=== PATIENT | male | born 1955 | race Caucasian/White ===

== ENCOUNTER 2016-09-20 18:12 | Emergency (ER) | payer BC ==
[2016-09-20 18:25] VITALS: TEMP 100
[2016-09-20 18:58] LABS: Glucose,Whole Blood 450 mg/dL (75-99)
[2016-09-20] MEDS ORDERED: ACETAMINOPHEN TAB 500 MG TAB PO STA (20:14)
--- NOTE | 2016-09-20 20:17 | ED ---
General Adult HPI - General Chief complaint: Recheck/Abnormal Lab/Rx Stated complaint: abn labs Time Seen by Provider: 09/20/16 20:05 Source: patient, family, RN notes reviewed Mode of arrival: ambulatory Limitations: no limitations - History of Present Illness Initial comments: Patient is a pleasant 60-year-old male presenting to the emergency department with hyperglycemia. Patient states the past few days he has been fatigued and had head congestion. Questionable subjective fevers. Patient did see his doctor today and blood sugar was 275. They did notice ketones in the urine. Reported chest x-ray was negative. Patient states he has not been taking his medications over the past couple of days. Decreased appetite. - Related Data Home Medications Medication Instructions Recorded Confirmed Aspirin EC [Ecotrin Low Dose] 81 mg PO DAILY 12/19/14 09/20/16 Gabapentin [Neurontin] 900 mg PO TID 12/19/14 09/20/16 INSULIN LISPRO (HumaLOG) [humaLOG] See Protocol SQ AC-TID 12/19/14 09/20/16 Insulin Glargine [Lantus] 50 unit SQ HS 12/19/14 09/20/16 Rosuvastatin Calcium [Crestor] 20 mg PO HS 12/19/14 09/20/16 Multivitamin [Men's Multi-Vitamin] 1 tab PO DAILY 12/28/14 09/20/16 Amlodipine (Unknown Dose) 1 tab PO DAILY 09/20/16 09/20/16 Cholecalciferol [Vitamin D3] 5,000 unit PO DAILY 09/20/16 09/20/16 Krill Oil 500 mg PO DAILY 09/20/16 09/20/16 Allergies Allergy/AdvReac Type Severity Reaction Status Date / Time Penicillins Allergy Unknown Verified 09/20/16 19:12 Childhood Review of Systems ROS Statement: Those systems with pertinent positive or pertinent negative responses have been documented in the HPI. ROS Other: All systems not noted in ROS Statement are negative. Constitutional: Denies: fever Eyes: Denies: eye pain ENT: Reports: congestion. Denies: ear pain Respiratory: Reports: cough Cardiovascular: Denies: chest pain Endocrine: Reports: fatigue Gastrointestinal: Denies: abdominal pain Genitourinary: Denies: dysuria Musculoskeletal: Denies: back pain Skin: Denies: rash Neurological: Denies: weakness Past Medical History Past Medical History: Diabetes Mellitus, Hyperlipidemia, Hypertension Additional Past Medical History / Comment(s): neuropathy, wound rt foot History of Any Multi-Drug Resistant Organisms: MRSA Date of last positivie culture/infection: 09/28/15 MDRO Source:: Right Foot Past Surgical History: Orthopedic Surgery Additional Past Surgical History / Comment(s): decompression nerves bilateral elbows Past Anesthesia/Blood Transfusion Reactions: Motion Sickness Past Psychological History: No Psychological Hx Reported Smoking Status: Never smoker Past Alcohol Use History: None Reported Past Drug Use History: None Reported - Past Family History Mother Family Medical History: Cancer, Diabetes Mellitus General Exam Limitations: no limitations General appearance: alert, in no apparent distress Head exam: Present: atraumatic Eye exam: Present: normal appearance, PERRL ENT exam: Present: normal oropharynx Neck exam: Present: normal inspection. Absent: tenderness, meningismus Respiratory exam: Present: rhonchi Cardiovascular Exam: Present: regular rate, normal rhythm GI/Abdominal exam: Present: soft. Absent: tenderness Extremities exam: Present: normal inspection. Absent: pedal edema, calf tenderness Neurological exam: Present: alert Psychiatric exam: Present: normal affect, normal mood Skin exam: Present: normal color Course Vital Signs 09/20/16 09/20/16 18:22 22:36 Temperature 100.0 F H Pulse Rate 108 H 100 Respiratory 20 18 Rate Blood Pressure 142/71 114/57 O2 Sat by Pulse 99 94 L Oximetry Medical Decision Making - Medical Decision Making Patient reexamined twice. Blood sugar has improved to 290. Patient is comfortable with discharge. Patient is receptive to another dose of insulin prior to discharge. Patient is agreeable to close follow-up with his doctor and will try to follow-up Friday if possible. Patient advised to return if blood sugar raises her symptoms worsen. - Lab Data Result diagrams: 09/20/16 19:03 09/20/16 19:03 Lab Results 09/20/16 09/20/16 09/20/16 Range/Units 18:57 19:03 19:03 WBC 10.7 H (3.8-10.6) k/uL RBC 4.44 (4.30-5.90) m/uL Hgb 13.6 (13.0-17.5) gm/dL Hct 39.1 (39.0-53.0) % MCV 88.1 (80.0-100.0) fL MCH 30.5 (25.0-35.0) pg MCHC 34.7 (31.0-37.0) g/dL RDW 12.9 (11.5-15.5) % Plt Count 135 L (150-450) k/uL Neutrophils % 91 % Lymphocytes % 3 % Monocytes % 5 % Eosinophils % 0 % Basophils % 0 % Neutrophils # 9.7 H (1.3-7.7) k/uL Lymphocytes # 0.4 L (1.0-4.8) k/uL Monocytes # 0.5 (0-1.0) k/uL Eosinophils # 0.0 (0-0.7) k/uL Basophils # 0.0 (0-0.2) k/uL PT (9.0-12.0) sec INR (<1.1) APTT (22.0-30.0) sec Sodium 131 L (137-145) mmol/L Potassium 4.0 (3.5-5.1) mmol/L Chloride 95 L (98-107) mmol/L Carbon Dioxide 24 (22-30) mmol/L Anion Gap 12 mmol/L BUN 33 H (9-20) mg/dL Creatinine 1.95 H (0.66-1.25) mg/dL Est GFR (MDRD) Af Amer 43 (>60 ml/min/1.73 sqM) Est GFR (MDRD) Non-Af 36 (>60 ml/min/1.73 sqM) Glucose 456 H* (74-99) mg/dL POC Glucose (mg/dL) 450 H (75-99) mg/dL POC Glu [employer] ID Bianca Kim Plasma Lactic Acid Isai (0.7-2.0) mmol/L Calcium 8.8 (8.4-10.2) mg/dL Total Bilirubin 1.1 (0.2-1.3) mg/dL AST 65 H (17-59) U/L ALT 51 (21-72) U/L Alkaline Phosphatase 73 (38-126) U/L Total Protein 6.8 (6.3-8.2) g/dL Albumin 3.6 (3.5-5.0) g/dL Urine Color Urine Appearance (Clear) Urine pH (5.0-8.0) Ur Specific [place] (1.001-1.035) Urine Protein (Negative) Urine Glucose (UA) (Negative) Urine Ketones (Negative) Urine Blood (Negative) Urine Nitrite (Negative) Urine Bilirubin (Negative) Urine Urobilinogen (<2.0) mg/dL Ur Leukocyte Esterase (Negative) Urine RBC (0-5) /hpf Urine WBC (0-5) /hpf Granular Casts (0) /lpf Urine Mucus (None) /hpf Acetone, Qual Negative (Negative) 09/20/16 09/20/16 09/20/16 Range/Units 19:03 20:10 21:24 WBC (3.8-10.6) k/uL RBC (4.30-5.90) m/uL Hgb (13.0-17.5) gm/dL Hct (39.0-53.0) % MCV (80.0-100.0) fL MCH (25.0-35.0) pg MCHC (31.0-37.0) g/dL RDW (11.5-15.5) % Plt Count (150-450) k/uL Neutrophils % % Lymphocytes % % Monocytes % % Eosinophils % % Basophils % % Neutrophils # (1.3-7.7) k/uL Lymphocytes # (1.0-4.8) k/uL Monocytes # (0-1.0) k/uL Eosinophils # (0-0.7) k/uL Basophils # (0-0.2) k/uL PT 11.4 (9.0-12.0) sec INR 1.1 (<1.1) APTT 25.8 (22.0-30.0) sec Sodium (137-145) mmol/L Potassium (3.5-5.1) mmol/L Chloride (98-107) mmol/L Carbon Dioxide (22-30) mmol/L Anion Gap mmol/L BUN (9-20) mg/dL Creatinine (0.66-1.25) mg/dL Est GFR (MDRD) Af Amer (>60 ml/min/1.73 sqM) Est GFR (MDRD) Non-Af (>60 ml/min/1.73 sqM) Glucose (74-99) mg/dL POC Glucose (mg/dL) (75-99) mg/dL POC Glu [employer] ID Plasma Lactic Acid Isai 1.7 (0.7-2.0) mmol/L Calcium (8.4-10.2) mg/dL Total Bilirubin (0.2-1.3) mg/dL AST (17-59) U/L ALT (21-72) U/L Alkaline Phosphatase (38-126) U/L Total Protein (6.3-8.2) g/dL Albumin (3.5-5.0) g/dL Urine Color Yellow Urine Appearance Clear (Clear) Urine pH 5.5 (5.0-8.0) Ur Specific [place] 1.016 (1.001-1.035) Urine Protein 2+ H (Negative) Urine Glucose (UA) 4+ H (Negative) Urine Ketones Negative (Negative) Urine Blood Moderate H (Negative) Urine Nitrite Negative (Negative) Urine Bilirubin Negative (Negative) Urine Urobilinogen <2.0 (<2.0) mg/dL Ur Leukocyte Esterase Negative (Negative) Urine RBC 19 H (0-5) /hpf Urine WBC 1 (0-5) /hpf Granular Casts 5 (0) /lpf Urine Mucus Rare H (None) /hpf Acetone, Qual (Negative) 09/20/16 09/20/16 09/20/16 Range/Units 21:34 22:11 22:54 WBC (3.8-10.6) k/uL RBC (4.30-5.90) m/uL Hgb (13.0-17.5) gm/dL Hct (39.0-53.0) % MCV (80.0-100.0) fL MCH (25.0-35.0) pg MCHC (31.0-37.0) g/dL RDW (11.5-15.5) % Plt Count (150-450) k/uL Neutrophils % % Lymphocytes % % Monocytes % % Eosinophils % % Basophils % % Neutrophils # (1.3-7.7) k/uL Lymphocytes # (1.0-4.8) k/uL Monocytes # (0-1.0) k/uL Eosinophils # (0-0.7) k/uL Basophils # (0-0.2) k/uL PT (9.0-12.0) sec INR (<1.1) APTT (22.0-30.0) sec Sodium (137-145) mmol/L Potassium (3.5-5.1) mmol/L Chloride (98-107) mmol/L Carbon Dioxide (22-30) mmol/L Anion Gap mmol/L BUN (9-20) mg/dL Creatinine (0.66-1.25) mg/dL Est GFR (MDRD) Af Amer (>60 ml/min/1.73 sqM) Est GFR (MDRD) Non-Af (>60 ml/min/1.73 sqM) Glucose (74-99) mg/dL POC Glucose (mg/dL) 410 H 310 H 294 H (75-99) mg/dL POC Glu [employer] Marilee Todd Danielle Biewer, [place] Plasma Lactic Acid Isai (0.7-2.0) mmol/L Calcium (8.4-10.2) mg/dL Total Bilirubin (0.2-1.3) mg/dL AST (17-59) U/L ALT (21-72) U/L Alkaline Phosphatase (38-126) U/L Total Protein (6.3-8.2) g/dL Albumin (3.5-5.0) g/dL Urine Color Urine Appearance (Clear) Urine pH (5.0-8.0) Ur Specific [place] (1.001-1.035) Urine Protein (Negative) Urine Glucose (UA) (Negative) Urine Ketones (Negative) Urine Blood (Negative) Urine Nitrite (Negative) Urine Bilirubin (Negative) Urine Urobilinogen (<2.0) mg/dL Ur Leukocyte Esterase (Negative) Urine RBC (0-5) /hpf Urine WBC (0-5) /hpf Granular Casts (0) /lpf Urine Mucus (None) /hpf Acetone, Qual (Negative) - Radiology Data Radiology results: image reviewed (Chest x-ray shows no acute process) Disposition Clinical Impression: Hyperglycemia Disposition: HOME SELF-CARE Condition: Stable Instructions: Diabetic Hyperglycemia (ED) Additional Instructions: Please follow-up with your doctor Friday preferably. Return for increased blood sugar, increased fatigue or weakness, continued fevers, worsening symptoms or other concerns. Referrals: Jacki Brock DO [Primary Care Provider] - 1-2 days Time of Disposition: 22:59
[2016-09-20 20:25] LABS: Basophils % (A) 0 %; CH 30.9; CHCM 35.3; Eosinophils % (A) 0 %; HCT 39.1 % (39.0-53.0); HDW 2.65; HGB 13.6 gm/dL (13.0-17.5); Luc # (Auto) 0.08; Luc % (Auto) 1; Lymphocytes # (A) 0.4 k/uL (1.0-4.8); Lymphocytes % (A) 3 %; MCH 30.5 pg (25.0-35.0); MCHC 34.7 g/dL (31.0-37.0); MCV 88.1 fL (80.0-100.0); Mean Platelet Volume 7.5; Monocytes # (A) 0.5 k/uL (0-1.0); Monocytes % (A) 5 %; Neutrophils # (A) 9.7 k/uL (1.3-7.7); Neutrophils % (A) 91 %; RBC 4.44 m/uL (4.30-5.90); RDW 12.9 % (11.5-15.5); WBC 10.7 k/uL (3.8-10.6)
[2016-09-20] MEDS: SODIUM CHLORIDE 0.9% 500 ML IV SCH ×3 (20:27→22:44)
[2016-09-20 20:33] LABS: INR 1.1 (<1.1); Partial Thromboplastin Time 25.8 sec (22.0-30.0); Prothrombin Time 11.4 sec (9.0-12.0)
[2016-09-20 20:36] LABS: ALT 51 U/L (21-72); AST 65 U/L (17-59); Alkaline Phosphatase 73 U/L (38-126); Anion Gap 12 mmol/L; Blood Urea Nitrogen 33 mg/dL (9-20); Calcium 8.8 mg/dL (8.4-10.2); Carbon Dioxide 24 mmol/L (22-30); Chloride 95 mmol/L (98-107); Non-African American GFR(MDRD) 36 (>60 ml/min/1.73 sqM); Sodium 131 mmol/L (137-145); Total Bilirubin 1.1 mg/dL (0.2-1.3); Total Protein 6.8 g/dL (6.3-8.2)
[2016-09-20 20:38] LABS: Glucose 456 mg/dL (74-99)
--- NOTE | 2016-09-20 20:43 | XR ---
EXAMINATION TYPE: XR chest 2V DATE OF EXAM: 09/20/2016 COMPARISON: 12/19/2014 HISTORY: Fever TECHNIQUE: Frontal and lateral views of the chest are obtained. FINDINGS: Heart and mediastinum are normal. Lungs are clear. Diaphragm is normal. There are chest le ads. Bony thorax is intact. IMPRESSION: Normal chest. No change.
[2016-09-20] MEDS ORDERED: INSULIN REGULAR 100 UNIT/ML VIAL IV ONE (20:52)
[2016-09-20 21:35] LABS: Glucose,Whole Blood 410 mg/dL (75-99)
[2016-09-20 21:50] LABS: Appearance,Urine Clear (Clear); Bilirubin,Urine Negative (Negative); Glucose,Urine (UA) 4+ (Negative); Granular Casts,Urine 5 /lpf (0); Ketones,Urine Negative (Negative); Leukocyte Esterase,Urine Negative (Negative); Mucus,Urine Rare /hpf; Nitrite,Urine Negative (Negative); PH, Urine 5.5 (5.0-8.0); Particle Count 4108; Protein,Urine 2+ (Negative); RBC,Urine 19 /hpf (0-5); Specific Gravity,Urine 1.016 (1.001-1.035); UA Billing (MACRO vs. MICRO) MICRO; Urobilinogen,Urine <2.0 mg/dL (<2.0); WBC,Urine 1 /hpf (0-5)
[2016-09-20] MEDS ORDERED: GABAPENTIN 300 MG CAP PO STA (22:00)
[2016-09-20 22:12] LABS: Glucose,Whole Blood 310 mg/dL (75-99)
[2016-09-20 22:37] VITALS: BP 114/57; PULSE 100; RESP 18
[2016-09-20 22:56] LABS: Glucose,Whole Blood 294 mg/dL (75-99)
[2016-09-20] MEDS ORDERED: INSULIN REGULAR 100 UNIT/ML VIAL SQ ONE (22:58)
== END 2016-09-20 23:17 | disposition home or self-care (01) ==
LOC: EC 18:12
DX: E11.65 Type 2 diabetes mellitus with hyperglycemia (principal); E78.5 Hyperlipidemia, unspecified; I10 Essential (primary) hypertension; Z79.82 Long term (current) use of aspirin; Z79.4 Long term (current) use of insulin; Z79.899 Other long term (current) drug therapy; Z88.0 Allergy status to penicillin; Z83.3 Family history of diabetes mellitus
CPT/HCPCS: 36415; 71020; 80053; 81001; 82009; 83605; 85025; 85610; 85730; 87040; 87077; 87086; 87186; 96360; 96361; 99285

== ENCOUNTER 2016-10-17 19:18 | Emergency (ER) | payer BC ==
[2016-10-17 19:55] VITALS: RESP 18
--- NOTE | 2016-10-17 20:32 | ED ---
General Adult HPI - General Chief complaint: Extremity Injury, Lower Stated complaint: Dr Blair Time Seen by Provider: 10/17/16 20:03 Source: patient, RN notes reviewed Mode of arrival: ambulatory Limitations: no limitations - History of Present Illness Initial comments: Patient is a 61-year-old male past medical history diabetes presents to the emergency room for evaluation of right leg pain and tenderness. Patient states he's had an ulcer on the bottom of his right foot for the past few months. Patient states he has been following up with his primary care provider and slab lifting engineer regarding this. Patient states that he has been having on and off swelling of his leg. Patient states that he began having right leg swelling and calf tenderness yesterday. Patient states he was unable to get into his primary care provider office so he went to the clinic. Patient states that he was advised to come here to an ultrasound to rule out blood clot. Patient states he does have a history of blood clot many years ago. Patient denies being on blood thinners currently besides one baby aspirin per day. Patient states he takes Humalog and Lantus for diabetes. Patient states the ulcer area has become slightly worse. Patient denies fevers or chills. Patient denies nausea and vomiting. Patient denies headache or dizziness. Patient denies increased pain at the ulcer area due to diabetic neuropathy. - Related Data Home Medications Medication Instructions Recorded Confirmed Aspirin EC [Ecotrin Low Dose] 81 mg PO DAILY 12/19/14 10/17/16 Gabapentin [Neurontin] 900 mg PO TID 12/19/14 10/17/16 INSULIN LISPRO (HumaLOG) [humaLOG] See Protocol SQ AC-TID 12/19/14 10/17/16 Insulin Glargine [Lantus] 50 unit SQ HS 12/19/14 10/17/16 Rosuvastatin Calcium [Crestor] 20 mg PO HS 12/19/14 10/17/16 Amlodipine (Unknown Dose) 1 tab PO DAILY 09/20/16 10/17/16 Cholecalciferol [Vitamin D3] 5,000 unit PO DAILY 09/20/16 10/17/16 Krill Oil 500 mg PO DAILY 09/20/16 10/17/16 amLODIPine [Norvasc] 10 mg PO DAILY 10/17/16 10/17/16 Previous Rx's Medication Instructions Recorded Cephalexin [Keflex] 500 mg PO Q6HR #40 cap 10/17/16 Allergies Allergy/AdvReac Type Severity Reaction Status Date / Time Penicillins Allergy Unknown Verified 10/17/16 20:38 Childhood Review of Systems ROS Statement: Those systems with pertinent positive or pertinent negative responses have been documented in the HPI. ROS Other: All systems not noted in ROS Statement are negative. Past Medical History Past Medical History: Diabetes Mellitus, Hyperlipidemia, Hypertension Additional Past Medical History / Comment(s): neuropathy, wound rt foot History of Any Multi-Drug Resistant Organisms: MRSA Date of last positivie culture/infection: 09/28/15 MDRO Source:: Right Foot Past Surgical History: Orthopedic Surgery Additional Past Surgical History / Comment(s): decompression nerves bilateral elbows Past Anesthesia/Blood Transfusion Reactions: Motion Sickness Past Psychological History: No Psychological Hx Reported Smoking Status: Never smoker Past Alcohol Use History: None Reported Past Drug Use History: None Reported - Past Family History Mother Family Medical History: Cancer, Diabetes Mellitus General Exam - General Exam Comments Initial Comments: sitting in exam room, no acute distress. Limitations: no limitations General appearance: alert, in no apparent distress Head exam: Present: atraumatic, normocephalic, normal inspection Eye exam: Present: normal appearance ENT exam: Present: normal exam Neck exam: Present: normal inspection Respiratory exam: Present: normal lung sounds bilaterally. Absent: respiratory distress Cardiovascular Exam: Present: regular rate, normal rhythm, normal heart sounds Right Lower Leg exam: Present: tenderness (tenderness on palpating over the distal calf), swelling Foot/Toe exam: Absent: normal inspection (stage I diabetic ulcer on the plantar portion of the distal first metatarsal area) Neurovascular tendon exam: Absent: abnormal cap refill (capillary refill less than 2 seconds) Back exam: Present: normal inspection Neurological exam: Present: alert, oriented X3, CN II-XII intact Psychiatric exam: Present: normal affect, normal mood Skin exam: Present: warm, dry Course Vital Signs 10/17/16 10/17/16 10/17/16 19:51 21:28 22:48 Temperature 96.8 F L 98.1 F 97.9 F Pulse Rate 89 79 88 Respiratory 18 18 Rate Blood Pressure 144/71 135/77 158/81 O2 Sat by Pulse 99 99 99 Oximetry Medical Decision Making - Medical Decision Making Patient is a 61-year-old male presents emergency room for evaluation of diabetic ulcer on the bottom of right foot and right leg swelling. NEGATIVE FOR ACUTE DVT. PATIENT BE PLACED ON PROPHYLACTIC ANTIBIOTICS TO TREAT FOR POTENTAL CELLULITIS FROM [facility]LC[facility]. PATIENT DOES STATE HE HAS AN APPOINTMENT WITH HIS [employer] FLEX DEVELOPER TOMORROW. ADVISED PATIENT TO KEEP THAT APPOINTMENT. ADVISED PATIENT TO RETURN FOR WORSENING SYMPTOMS. PATIENT STATES HE UNDERSTANDS EVERYTHING THAT WAS DISCUSSED WITH HIM. RETURN PARAMETERS DISCUSSED. CASE DISCUSSED WITH DR. GLOVER. - Radiology Data Radiology results: report reviewed, image reviewed Disposition Clinical Impression: Diabetic foot ulcer Disposition: HOME SELF-CARE Condition: Good Instructions: Foot Care for People with Diabetes (ED), Diabetic Foot Ulcers (ED ) Additional Instructions: Take antibiotics as directed. Please follow up with primary care provider or slab lifting engineer. If any new symptom arises or symptoms worsen, return to ER as soon as possible. Prescriptions: Cephalexin [Keflex] 500 mg PO Q6HR #40 cap Referrals: Jacki Brock DO [Primary Care Provider] - 1-2 days Time of Disposition: 21:23
--- NOTE | 2016-10-17 21:16 | US ---
EXAMINATION TYPE: US venous doppler duplex LE RT DATE OF EXAM: 10/17/2016 8:55 PM COMPARISON: Prior in PACs CLINICAL HISTORY: Swelling right leg. SIDE PERFORMED: Right TECHNIQUE: The lower extremity deep venous system is examined utilizing real time linear array sonog angella with graded compression, doppler sonography and color-flow sonography. VESSELS IMAGED: External Iliac Vein (EIV) Common Femoral Vein Deep Femoral Vein Greater Saphenous Vein * Femoral Vein Popliteal Vein Small Saphenous Vein * Proximal Calf Veins (* superficial vessels) Right Leg: Negative for DVT Oval, hypoechoic area with echogenic center visualized right groin measuring 4.0 x 1.2 x 2.6 cm, comp atible with lymph node IMPRESSION: Grayscale, color doppler, spectral doppler imaging performed of the deep veins of the lo wer extremities. There is normal flow, compressibility, vascular waveforms bilaterally. No evident deep venous thrombosis.
[2016-10-17 22:49] VITALS: BP 158/81; PULSE 88; TEMP 97.9
== END 2016-10-17 21:43 | disposition home or self-care (01) ==
LOC: EC 19:18
DX: E11.621 Type 2 diabetes mellitus with foot ulcer (principal); L97.519 Non-pressure chronic ulcer of other part of right foot with unspecified severity; I10 Essential (primary) hypertension; E11.40 Type 2 diabetes mellitus with diabetic neuropathy, unspecified; E78.5 Hyperlipidemia, unspecified; Z86.14 Personal history of Methicillin resistant Staphylococcus aureus infection; Z86.718 Personal history of other venous thrombosis and embolism; Z79.4 Long term (current) use of insulin; Z79.82 Long term (current) use of aspirin; Z79.899 Other long term (current) drug therapy; Z88.0 Allergy status to penicillin
CPT/HCPCS: 99283

== ENCOUNTER → 2017-04-11 | Outpatient (CLI) | payer BC ==
--- NOTE | 2017-04-12 17:25 | EEG ---
ELECTROENCEPHALOGRAM REPORT DATE OF SERVICE: 04/11/2017. CHIEF COMPLAINT: Dizziness, disequilibrium, numbness. DESCRIPTION OF THE PROCEDURE: This EEG was performed using a 21 channel digital electroencephalograph, following international 10-20 system. DESCRIPTION OF THE RECORDING: From the beginning of the tracing and with the patient's eyes closed, the background rhythm was mostly consisting of 9 Hz alpha frequency in the posterior occipital leads. No obvious asymmetry is seen. Photic stimulation was performed with a minimal driving response seen. No pathological waves were elicited. Hyperventilation was not performed. Occasional movement artifacts are seen. The patient remains awake throughout the tracing. No epileptiform discharges were seen. The EKG lead showed a regular rate and rhythm. INTERPRETATION: This awake EEG can be considered within normal limits. There was no asymmetry seen. No epileptiform discharges were noticed. The absence of epileptiform discharges does not rule out the diagnosis of epilepsy; therefore, clinical correlation is recommended. MMODL / IJN: [id number] /
== END ==
LOC: NEUROMAIN 07:20
PROVIDERS: ATTEND Nurse Practitioner
DX: Z09 Encounter for follow-up examination after completed treatment for conditions other than malignant neoplasm (principal); Z87.820 Personal history of traumatic brain injury
CPT/HCPCS: 95819